=== PATIENT | female | born 1950 | race Caucasian/White ===

== ENCOUNTER 2018-02-03 10:00 | Inpatient (IN) | payer MEDICARE, BC ==
[2018-02-03] MEDS: ENOXAPARIN 100 MG SOL SC SCH (14:31)
[2018-02-03] MEDS: SODIUM CHLORIDE 0.9% FLUSH 10 ML SOL IV SCH (17:37)
[2018-02-03] MEDS ORDERED: WARFARIN SODIUM 5 MG TAB PO ONE (18:00)
[2018-02-04] MEDS: SODIUM CHLORIDE 0.9% FLUSH 10 ML SOL IV SCH ×4 (02:59→23:23)
[2018-02-04] MEDS: ENOXAPARIN 100 MG SOL SC SCH ×4 (03:00→19:13)
[2018-02-04] MEDS: LEVOTHYROXINE SODIUM 50 MCG TAB PO SCH (06:31)
[2018-02-04] MEDS: LOSARTAN POTASSIUM 50 MG TAB PO SCH (09:35)
[2018-02-04 15:49] VITALS: RESP 18
[2018-02-04] MEDS ORDERED: WARFARIN SODIUM 5 MG TAB PO ONE ×2 (18:00)
[2018-02-05] MEDS: SODIUM CHLORIDE 0.9% FLUSH 10 ML SOL IV SCH (04:03)
[2018-02-05] MEDS: ENOXAPARIN 100 MG SOL SC SCH (06:20)
[2018-02-05] MEDS: LEVOTHYROXINE SODIUM 50 MCG TAB PO SCH (06:22)
[2018-02-05 07:19] LABS: BASOPHILS % (AUTO) 1 % (0-3); EOSINOPHILS % (AUTO) 2 % (0-9); HEMATOCRIT 41 % (35-47); MEAN CORPUSCULAR HGB CONC 32.8 gm/dl (32.0-36.0); MEAN CORPUSCULAR VOLUME 91 fL (81-99); MONOCYTES % (AUTO) 7.5 % (0-12); NEUTROPHILS % (AUTO) 61.3 % (37-80)
[2018-02-05 07:28] LABS: ALBUMIN 3.3 gm/dl (3.4-5.0); CALCIUM 8.9 mg/dl (8.5-10.1); POTASSIUM 4.1 mMol/L (3.5-5.1)
[2018-02-05 08:27] VITALS: BP 131/86; TEMP 97.8
[2018-02-05 08:28] VITALS: PULSE 80; O2SAT 94
[2018-02-05] MEDS: LOSARTAN POTASSIUM 50 MG TAB PO SCH (08:36)
== END 2018-02-05 10:30 | disposition home or self-care (01) | DRG 176 ==
LOC: RAD 10:00 → ACUTE CARE 11:32
PROVIDERS: ADMIT Family Medicine; ATTEND Family Medicine
DX: I26.99 Other pulmonary embolism without acute cor pulmonale (principal); G47.34 Idiopathic sleep related nonobstructive alveolar hypoventilation; E66.01 Morbid (severe) obesity due to excess calories; I10 Essential (primary) hypertension; R11.0 Nausea; E03.9 Hypothyroidism, unspecified; Z68.35 Body mass index [BMI] 35.0-35.9, adult
CPT/HCPCS: 36415; 71275; 80053; 85025; 85610; 93012; 94150; 94762; J1650; Q9967; A9270-GY